=== PATIENT | male | born 1940 | race Caucasian/White ===

== ENCOUNTER 2019-11-07 13:53 | Outpatient (CLI) | payer MEDICARE, SELFPAY ==
--- NOTE | ~2019-11-07 | XR_ITS ---
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 TECHNIQUE: 4 views of left hand third digit were obtained. COMPARISON: None. FINDINGS: Bone alignment is normal. No fracture. There is mild osteoarthritis of third metacarpophala ngeal joints and proximal interphalangeal joint and moderate osteoarthritis of third distal interphal angeal joint. IMPRESSION: 1. Polyarticular osteoarthritis. Reviewed, dictated and finalized at location A.
== END 2019-11-07 13:54 | disposition home or self-care (01) ==
PROVIDERS: PCP Physician Assistant; Visit Provider Plastic Surgery
DX: C44.629 Squamous cell carcinoma of skin of left upper limb, including shoulder (principal); M19.042 Primary osteoarthritis, left hand
CPT/HCPCS: 73140

== ENCOUNTER 2019-11-21 13:23 | Outpatient (CLI) | payer MEDICARE, SELFPAY ==
--- NOTE | 2019-11-21 13:27 | ECG_ITS ---
Measurements Intervals [place] Rate: 73 P: 14 [place]: 204 QRS: -22 QRSD: 115 T: 19 QT: 384 QTc: 426 Interpretive Statements SINUS RHYTHM LOW QRS VOLTAGE IN PRECORDIAL LEADS POOR R WAVE PROGRESSION, ANTERIOR LEADS BORDERLINE ECG Electronically Signed On 11-21-2019 13:44:41 CDT by Giovani Maria D.O.
[2019-11-21 14:02] LABS: Anion Gap 9 mmol/L (8-16); Blood Urea Nitrogen 35 mg/dL (9-20); Calcium 9.3 mg/dL (8.4-10.2); Carbon Dioxide 23 mmol/L (22-30); Chloride 104 mmol/L (98-107); Estimated Glomerular Filt Rate 32; Glucose 154 mg/dL (75-110); Potassium 4.5 mmol/L (3.4-5.0); Sodium 136 mmol/L (137-145)
== END 2019-11-21 13:24 | disposition home or self-care (01) ==
LOC: ANHSURGERY 13:27
PROVIDERS: Anesthesiology; PCP Physician Assistant; Visit Provider Plastic Surgery
DX: Z01.818 Encounter for other preprocedural examination (principal); I10 Essential (primary) hypertension; E11.9 Type 2 diabetes mellitus without complications
CPT/HCPCS: 36415; 80048; 93005

== ENCOUNTER 2019-11-25 01:07 | Outpatient (CLI) | payer MEDICARE, SELFPAY ==
[2019-11-25 18:53] LABS: SARS-CoV-2 RNA PCR Negative
== END 2019-11-25 01:08 | disposition home or self-care (01) ==
LOC: ANHCOVIDDT 01:10
PROVIDERS: PCP Physician Assistant; Visit Provider Plastic Surgery
DX: Z01.812 Encounter for preprocedural laboratory examination (principal); Z20.828 Contact with and (suspected) exposure to other viral communicable diseases
CPT/HCPCS: 87635; C9803; U0003

== ENCOUNTER 2019-11-27 01:17 | Day surgery (SDC) | payer MEDICARE, SELFPAY ==
[2019-11-20 15:18] VITALS: BMI 33.0
--- NOTE | 2019-11-26 16:09 | PM.IMHP ---
H&P: HPI History of Present Illness Date/Time: 11/26/19 16:09 Chief complaint: sq cell CA left middle finger nail bed Narrative: Clark Han is a 79 year old male patient of Dr Abdullahi, referred by Dr. Brown for evaluation of the problem with the nail. This had been sore for a couple of months and had been treated by different techniques but a firm diagnosis had not been made. He presented to my office October 30 and we elected to do a biopsy. This was done the same day with a partial ungiectomy and a submission of nail bed tissue to pathology. The report was squamous cell carcinoma poorly differentiated and infiltrative . An x-ray was ordered that showed no bone involvement. Dr. Brown was notified of this and asked that the patient be referred to Dr. Israel, a filter washer who does Mohs surgery in [place]. Her opinion was that surgery would be contraindicated in a poorly differentiated tumor of the nail bed despite a normal x-ray. Mr. Han was referred back to me with the recommendation to proceed with a distal phalanx amputation. The patient understands and wishes to proceed. He will require post op surveilance. He is aware that a shortened digit will present difficulties in use of the hand. Review of Systems Review of Systems: All systems reviewed & are unremarkable except as noted in HPI and below Respiratory: Respiratory: Reports no additional respiratory complaints Genitourinary: Comments: Asymptomatic renal failure of unknown degree. Hematologic/Lymphatic: Comments: History of venous thrombosus PMFSH Past Medical History Medical History (Updated 11/26/19 @ 18:17 by Garcia Mejias MD) Deep vein thrombosis Surgical History Surgical History (Updated 11/26/19 @ 18:07 by Garcia Mejias MD) History of hip replacement Social History Social History Smoking status: Never smoker Spiritual care concerns: No Meds Home Medications and Allergies Home Medications Medication Instructions Recorded Confirmed Type allopurinol 150 mg PO DAILY 11/20/19 11/20/19 History amlodipine 5 mg PO DAILY 11/20/19 11/20/19 History aspirin [Adult Low Dose Aspirin] 81 mg PO DAILY 11/20/19 11/20/19 History clopidogrel 75 mg PO DAILY 11/20/19 11/20/19 History ezetimibe 10 mg PO DAILY 11/20/19 11/20/19 History garlic 1,000 mg PO DAILY 11/20/19 11/20/19 History isosorbide mononitrate 30 mg PO DAILY 11/20/19 11/20/19 History lisinopril 40 mg PO DAILY 11/20/19 11/20/19 History magnesium 250 mg PO DAILY 11/20/19 11/20/19 History metformin 500 mg PO BID 11/20/19 11/20/19 History metoprolol succinate 25 mg PO DAILY 11/20/19 11/20/19 History multivitamin,vv-rsep-tzrdyqtm 1 tablet PO DAILY 11/20/19 11/20/19 History [Complete Multivitamin] omega 6-lyr-zzg-fish oil [Fish Oil] 1 cap PO BID 11/20/19 11/20/19 History omeprazole 20 mg PO DAILY 11/20/19 11/20/19 History sennosides [senna] 8.6 mg PO DAILY PRN 11/20/19 11/20/19 History simvastatin [Zocor] 20 mg PO HS 11/20/19 11/20/19 History Allergies Allergy/AdvReac Type Severity Reaction Status Date / Time Penicillins Allergy Hives Verified 11/20/19 15:08 Exam Const: General: no acute distress HENMT: Mouth: Yes moist mucous membranes Eyes: General: appearance normal, both eyes and all related structures Neck: Lymphatic: lymphadenopathy Other: No palpable lymphadenopathy in the extremity. Resp: Effort & Inspection: normal respiratory effort Cardio: Rate: regular rate Rhythm: regular rhythm GI: GI Palp: Yes Soft to palpation Skin: General skin exam: normal color Neuro: General: gait normal Speech: normal speech Extrem: Other: S/P partial ungiectomy of the left middle finger. Psych: Mental Status: mental status grossly normal Assessment and Plan Assessment and plan (1) Hypertension: Code(s): I10 - Essential (primary) hypertension Status: Acute (2) Osteoarthritis: Code(s
[2019-11-27] VITALS (7 sets, daily range): BP systolic 102–162; BP diastolic 54–75; PULSE 66–89; RESP 12–20; TEMP 36.7–37.1; O2SAT 95–98
[2019-11-27] MEDS: LACTATED RINGERS 1,000 ML 30 ML IV CONT (06:30)
[2019-11-27 06:33] LABS: Glucose Point of Care 156 (65-105)
--- NOTE | 2019-11-27 07:08 | WPDANESEPPF ---
Anes - Initial Pre Proc Eval Procedure: Operation Date: 11/27/19 07:30 Proposed Procedures p Distal Amputation of Left Middle Finger - Garcia Mejias MD Date/Time: 11/27/19 07:08 Surgeon: Garcia Mejias MD Pre Op Diagnosis: sq cell CA left middle finger nail bed Patient Data Age: 79 Gender: M Height: 6 ft 1 in Weight: 110.2 kg Last Vital Signs Temp 36.7 C 11/27/19 06:16 Pulse 74 11/27/19 06:16 Resp 18 11/27/19 06:16 BP 162/75 H 11/27/19 06:16 Pulse Ox 97 11/27/19 06:16 Allergies Allergy/AdvReac Type Severity Reaction Status Date / Time Penicillins Allergy Hives Verified 11/27/19 06:50 Home Medications Medication Instructions Recorded Confirmed Type allopurinol 150 mg PO DAILY 11/20/19 11/27/19 History amlodipine 5 mg PO DAILY 11/20/19 11/27/19 History aspirin [Adult Low Dose Aspirin] 81 mg PO DAILY 11/20/19 11/27/19 History clopidogrel 75 mg PO DAILY 11/20/19 11/27/19 History ezetimibe 10 mg PO DAILY 11/20/19 11/27/19 History garlic 1,000 mg PO DAILY 11/20/19 11/27/19 History isosorbide mononitrate 30 mg PO DAILY 11/20/19 11/27/19 History lisinopril 40 mg PO DAILY 11/20/19 11/27/19 History magnesium 250 mg PO DAILY 11/20/19 11/27/19 History metformin 500 mg PO BID 11/20/19 11/27/19 History metoprolol succinate 25 mg PO DAILY 11/20/19 11/27/19 History multivitamin,vl-xcdf-pwgwpqbr 1 tablet PO DAILY 11/20/19 11/27/19 History [Complete Multivitamin] omega 2-ife-wfw-fish oil [Fish Oil] 1 cap PO BID 11/20/19 11/27/19 History omeprazole 20 mg PO DAILY 11/20/19 11/27/19 History sennosides [senna] 8.6 mg PO DAILY PRN 11/20/19 11/27/19 History simvastatin [Zocor] 20 mg PO HS 11/20/19 11/27/19 History Laboratory Tests 11/27/19 06:29 POC Capillary Glucose 156 mg/dl H mg/dl (65-105) Patient hx anesthesia problems: none Family hx anesthesia problems: none PMFSH Past Medical History Medical History Deep vein thrombosis Diabetes Hyperlipidemia Hypertension Peripheral vascular disease TIA (transient ischemic attack) Surgical History Surgical History History of hip replacement Social History Social History Smoking status: Never smoker Living arrangements: other Spiritual care concerns: No Anes - Eval Final PreProcedure Day of Procedure 11/27/19 07:08 Patient weight: obese Heart: regular rate and rhythm Lungs: clear to auscultation Airway: Mallampati scale class II Neurological: alert and oriented Last oral intake: >/= 8 hours ASA classification: III Emergent: no Anesthetic plan: proceed Anesthesia type and monitoring: general LMA and standard monitoring Informed Consent: The patient's anesthetic plan and its attendant risks and benefits were discussed with the patient/family/POA. Questions were solicited and answers provided to the satisfaction of the patient/family/POA.
--- NOTE | 2019-11-27 07:26 | WPDHPUPDATE1 ---
History and Physical Update Update Date/Time: 11/27/19 07:26 History and Physical has been reviewed, including an updated exam of the patient. There are NO changes in the patient's condition. Risks, benefits, and alternatives have been discussed and questions answered. Patient agrees to proceed with procedure.
--- NOTE | 2019-11-27 07:27 | WPDHPUPDATE1 ---
History and Physical Update Update Date/Time: 11/27/19 07:27 History and Physical has been reviewed, including an updated exam of the patient. There are NO changes in the patient's condition. Risks, benefits, and alternatives have been discussed and questions answered. Patient agrees to proceed with procedure.
[2019-11-27] MEDS: LIDO 1%/EPINEPHRINE 1:100,000 20 ML VIAL 10 ML INFILTRATE (07:30)
[2019-11-27] MEDS: CLINDAMYCIN 900 MG/NS 50 ML 900 MG/50 ML PIGGYBACK 50 MG IVPB (07:30)
[2019-11-27] MEDS: BACITRACIN OINTMENT 15 GM TUBE 1 APPLIC TOPICAL (08:21)
--- NOTE | 2019-11-27 08:28 | SUR.OPER ---
EBL:5cc
[2019-11-27 08:48] LABS: Glucose Point of Care 163 (65-105)
--- NOTE | 2019-11-27 09:06 | PM.PROC ---
Procedure Note - Detailed Date of procedure: 11/27/19 Pre-op diagnosis: sq cell CA left middle finger nail bed Post-op diagnosis: same Procedure performed: Amputation of the right middle finger through the middle phalanx Description of procedure: The right middle finger was marked with the patient in the holding kent. He was taken to the operating room and placed supine on the operating table a time-out was held and confirmed. Was given general anesthesia as the extremity was prepped and draped in usual fashion. The digit was infiltrated with 1% lidocaine with epinephrine. The digit was marked for a fishmouth type amputation. The dorsal flap was designed just 4- 5 mm proximal to the end of the phalanx and a slightly longer flap was designed on the palmar aspect extending just beyond the interphalangeal joint. The green tourniquet was applied to the finger. The incision was made as marked and dissected to the flexor tendon the neurovascular bundles and extensor tendon. The neurovascular bundles were dissected under the skin about 3 mm and ligated with 4-0 Vicryl. The extensor tendon was divided and the collateral ligaments divided. The long flexor tendon was divided proximal to the volar plate and left to retract. The head of the middle phalanx was trimmed back with a rongeur until the skin flaps could easily close over it. The wound was closed with interrupted 4-0 nylon suture. The tourniquet was released and the small bandage applied. Additional 0.5% Marcaine plain approximately 3 milliliter was injected as an intrathecal block. The patient having given 900 mg of clindamycin preop. He is discharged with a prescription for hydrocodone 5/325 number 12. He has instructions in wound care and follow-up Surgeon: Garcia Mejias MD
--- NOTE | 2019-11-27 10:25 | SUR.PHASEII ---
0930 PT DRESSING; WAITING FOR RIDE.
== END 2019-11-27 10:00 | disposition home or self-care (01) ==
PROVIDERS: PCP Physician Assistant; Visit Provider Plastic Surgery
PROC: (CPT 26910; principal; 2019-11-27 07:30)
DX: C44.629 Squamous cell carcinoma of skin of left upper limb, including shoulder (principal); Z79.02 Long term (current) use of antithrombotics/antiplatelets; Z79.82 Long term (current) use of aspirin; Z79.84 Long term (current) use of oral hypoglycemic drugs; E11.51 Type 2 diabetes mellitus with diabetic peripheral angiopathy without gangrene; I10 Essential (primary) hypertension; E78.5 Hyperlipidemia, unspecified; Z86.73 Personal history of transient ischemic attack (TIA), and cerebral infarction without residual deficits; Z86.718 Personal history of other venous thrombosis and embolism; E66.9 Obesity, unspecified; Z68.32 Body mass index [BMI] 32.0-32.9, adult
CPT/HCPCS: 26951; 88305; 88307; 88311; A9270; J1100; J2405; J2704; J3010; J7120

== ENCOUNTER 2020-07-15 08:54 | Outpatient (CLI) | payer MEDICARE, SELFPAY ==
--- NOTE | 2020-07-15 11:30 | NEURO_ITS ---
Impression: # Complains of left hand numbness. Known diabetic. # Severe left Carpal Tunnel Syndrome involving motor and sensory nerves. # No ulnar neuropathy. # Needle/EMG exam not requested. Nerve Conduction Studies Anti Sensory Summary Table Stim Site NR Peak (ms) P-T Amp (?V) Site1 Site2 Delta-P (ms) Dist (cm) James (m/s) Left Median Anti Sensory (2-3nd Digit) Wrist 9.9 16.3 Wrist 2-3nd Digit 9.9 14.0 14 Wrist 8.5 3.7 Wrist 2-3nd Digit 9.9 14.0 14 Left Radial Anti Sensory (Base 1st Digit) Wrist 3.1 11.8 Wrist Base 1st Digit 3.1 0.0 Left Ulnar Anti Sensory (5th Digit) Wrist 3.2 20.0 Wrist 5th Digit 3.2 14.0 44 Motor Summary Table Stim Site NR Onset (ms) O-P Amp (mV) Site1 Site2 Delta-0 (ms) Dist (cm) James (m/s) Left Median Motor (Abd Poll Brev) Wrist 9.3 1.6 Elbow Wrist 6.2 30.0 48 Elbow 15.5 1.1 Left Ulnar Motor (Abd Dig Minimi) Wrist 2.8 5.3 A Elbow Wrist 6.0 31.0 52 A Elbow 8.8 4.2 F Wave Studies NR F-Lat (ms) L-R F-Lat (ms) Left Median (Mrkrs) (Abd Poll Brev) 41.58 Left Ulnar (Mrkrs) (Abd Dig Min) 35.69 MTDD
== END 2020-07-15 08:55 | disposition home or self-care (01) ==
PROVIDERS: PCP Physician Assistant; Visit Provider Plastic Surgery
DX: R20.2 Paresthesia of skin (principal); G56.02 Carpal tunnel syndrome, left upper limb
CPT/HCPCS: 95909

== ENCOUNTER → 2020-07-31 07:03 | Outpatient (CLI) | payer MEDICARE, SELFPAY ==
[2020-07-31 20:54] LABS: SARS-CoV-2 RNA PCR Negative
== END ==
PROVIDERS: PCP Physician Assistant; Visit Provider Plastic Surgery
DX: Z01.812 Encounter for preprocedural laboratory examination (principal); Z20.822 Contact with and (suspected) exposure to COVID-19
CPT/HCPCS: C9803; U0003; U0005

== ENCOUNTER 2020-07-31 09:12 | Outpatient (CLI) | payer MEDICARE, SELFPAY ==
[2020-07-31 10:19] LABS: Anion Gap 8 mmol/L (8-16); Blood Urea Nitrogen 29 mg/dL (9-20); Calcium 9.6 mg/dL (8.4-10.2); Carbon Dioxide 25 mmol/L (22-30); Chloride 107 mmol/L (98-107); Estimated Glomerular Filt Rate 32; Glucose 177 mg/dL (75-110); Potassium 4.4 mmol/L (3.4-5.0); Sodium 140 mmol/L (137-145)
== END 2020-07-31 09:13 | disposition home or self-care (01) ==
PROVIDERS: PCP Physician Assistant; Visit Provider Anesthesiology
DX: E11.9 Type 2 diabetes mellitus without complications (principal); Z01.818 Encounter for other preprocedural examination
CPT/HCPCS: 36415; 80048; C9803; U0003; U0005

== ENCOUNTER 2020-08-04 04:39 | Day surgery (SDC) | payer MEDICARE, SELFPAY ==
[2020-07-28 15:14] VITALS: BMI 33.0
--- NOTE | 2020-08-04 07:11 | WPDHPUPDATE1 ---
History and Physical Update Update Date/Time: 08/04/20 07:11 History and Physical has been reviewed, including an updated exam of the patient. There are NO changes in the patient's condition. Risks, benefits, and alternatives have been discussed and questions answered. Patient agrees to proceed with procedure.
--- NOTE | 2020-08-04 07:14 | WPDANESEPPF ---
Anes - Initial Pre Proc Eval Procedure: Operation Date: 08/04/20 09:45 Proposed Procedures p Left Open Carpal Tunnel Release - Garcia Mejias MD Date/Time: 08/04/20 07:14 Surgeon: Garcia Mejias MD Pre Op Diagnosis: left carpal tunnel syndrome Patient Data Age: 80 Gender: M Height: 1.85 m Weight: 113.4 kg Allergies Allergy/AdvReac Type Severity Reaction Status Date / Time Penicillins Allergy Hives Verified 08/04/20 08:14 Home Medications Medication Instructions Recorded Confirmed Type allopurinol 150 mg PO DAILY 11/20/19 07/28/20 History amlodipine 5 mg PO DAILY 11/20/19 07/28/20 History aspirin [Adult Low Dose Aspirin] 81 mg PO DAILY 11/20/19 07/28/20 History clopidogrel 75 mg PO DAILY 11/20/19 07/28/20 History garlic 1,000 mg PO DAILY 11/20/19 07/28/20 History isosorbide mononitrate 30 mg PO DAILY 11/20/19 07/28/20 History lisinopril 40 mg PO DAILY 11/20/19 07/28/20 History magnesium 250 mg PO HS 11/20/19 07/28/20 History metformin 500 mg PO BID 11/20/19 07/28/20 History metoprolol succinate 25 mg PO DAILY 11/20/19 07/28/20 History multivitamin,sv-goyu-tepwstjt 1 tablet PO DAILY 11/20/19 07/28/20 History [Complete Multivitamin] omega 3-mzq-bij-fish oil [Fish Oil] 1 cap PO BID 11/20/19 07/28/20 History omeprazole 20 mg PO DAILY 11/20/19 07/28/20 History sennosides [senna] 8.6 mg PO QPM 11/20/19 07/28/20 History rosuvastatin 20 mg PO QAM 07/28/20 07/28/20 History Patient hx anesthesia problems: none Family hx anesthesia problems: none PMFSH Past Medical History Medical History (Updated 08/04/20 @ 07:14 by Davy Chase DO) CAD (coronary artery disease) Deep vein thrombosis Diabetes GERD (gastroesophageal reflux disease) History of heart attack 2004 Hyperlipidemia Hypertension Peripheral vascular disease TIA (transient ischemic attack) Surgical History Surgical History History of hip replacement Social History Social History Smoking status: Never smoker Living arrangements: other Spiritual care concerns: No Anes - Eval Final PreProcedure Day of Procedure 08/04/20 07:14 Patient weight: obese Heart: regular rate and rhythm Lungs: clear to auscultation and normal air movement Airway: Mallampati scale class II Neurological: alert and oriented Last oral intake: >/= 8 hours ASA classification: III Emergent: no Anesthetic plan: proceed Anesthesia type and monitoring: general GIVS and standard monitoring Informed Consent: The patient's anesthetic plan and its attendant risks and benefits were discussed with the patient/family/POA. Questions were solicited and answers provided to the satisfaction of the patient/family/POA.
[2020-08-04 07:43] VITALS: BP 143/66; PULSE 68; RESP 18; TEMP 36.2; O2SAT 99
[2020-08-04] MEDS: LACTATED RINGERS 1,000 ML 30 ML IV CONT (08:10)
[2020-08-04 08:13] LABS: Glucose Point of Care 155 (65-105)
--- NOTE | 2020-08-04 08:20 | SUR.PREOP ---
0750 PT HAS LACERATION TO FIRST KNUCKLE OF FIRST LEFT DIGIT. WELL APPROX. NO REDDNESS OR SWELLING NOTED, DR SEAN FULTON, HERE TO SEE PT.
[2020-08-04] MEDS: LIDO 1%/EPINEPHRINE/PF 1:200,000 30 ML VIAL 50 ML XX (09:54)
[2020-08-04 09:58] VITALS: BP 75/36; PULSE 62; RESP 12; O2SAT 93
--- NOTE | 2020-08-04 10:07 | PM.OP ---
Procedure Note - Brief Procedure Note - Brief Date of procedure: 08/04/20 Pre-op diagnosis: left carpal tunnel syndrome Post-op diagnosis: same Procedure performed: L OCTR Anesthesia: MAC Surgeon: Garcia Mejias MD Tourniquet time (min): 9 Drains: No Packing: No Pathology: none sent Complications: No immediate complications Condition: stable Disposition: same day
--- NOTE | 2020-08-04 10:09 | PM.PROC ---
Procedure Note - Detailed Date of procedure: 08/04/20 Pre-op diagnosis: left carpal tunnel syndrome Post-op diagnosis: same Procedure performed: Left open carpal tunnel release Description of procedure: The left wrist was marked in the holding area. The patient was taken to the operating room and placed supine on the operating table. A time-out was held and confirmed. The extremity was prepped and draped in usual fashion. The site was remarked and locally infiltrated with 1% lidocaine with epinephrine. The tourniquet was inflated to 250 mmHg. The incision was made as marked. It was carried bluntly through the subcutaneous tissue to the palmar fascia. This and the carpal ligament were incised with a 15. Blade. Under 3 point retraction the ligament was visualized and released proximally and distally for Oliver to completely open the canal. The skin was closed with interrupted 4-0 nylon suture. There was no unusual anatomy noted. Usual bandage was applied. Tourniquet was released. He is discharged with prescription for hydrocodone 5/325 10. Anesthesia: MAC Surgeon: Garcia Mejias MD Estimated blood loss (mL): 0 Tourniquet time (min): 9 Drains: No Packing: No Pathology: none sent Complications: No immediate complications Condition: stable Disposition: same day
[2020-08-04 10:21] LABS: Glucose Point of Care 138 (65-105)
[2020-08-04 10:28] VITALS: BP 89/46; PULSE 66; RESP 12
[2020-08-04 10:58] VITALS: BP 87/66; PULSE 65; RESP 12
== END 2020-08-04 11:15 | disposition home or self-care (01) ==
PROVIDERS: PCP Physician Assistant; Visit Provider Plastic Surgery
PROC: (CPT 64721; principal; 2020-08-04 09:45)
DX: G56.02 Carpal tunnel syndrome, left upper limb (principal); I10 Essential (primary) hypertension; E11.9 Type 2 diabetes mellitus without complications; Z79.84 Long term (current) use of oral hypoglycemic drugs; E78.5 Hyperlipidemia, unspecified; K21.9 Gastro-esophageal reflux disease without esophagitis; I25.10 Atherosclerotic heart disease of native coronary artery without angina pectoris; I25.2 Old myocardial infarction; Z86.73 Personal history of transient ischemic attack (TIA), and cerebral infarction without residual deficits; Z86.718 Personal history of other venous thrombosis and embolism; Z79.02 Long term (current) use of antithrombotics/antiplatelets; Z85.828 Personal history of other malignant neoplasm of skin
CPT/HCPCS: 64721; 82948; A9270; J0131; J1100; J1885; J2405; J2704; J3010; J7120